=== PATIENT | female | born 1940 | race Two or more races ===

== ENCOUNTER → 2024-01-04 | Outpatient (CLI) | payer OTHER, SELFPAY ==
[2024-01-04 11:44] LABS: Basophils % (Auto) 1 % (0-2.5); Eosinophils # (Auto) 0.1 Thou/mm3 (0.0-0.5); Eosinophils % (Auto) 2 % (0-10); Hematocrit 35.6 % (36.0-46.0); Hemoglobin 11.8 g/dL (12.0-16.0); Immature Granulocytes % (Auto) 1 % (0-0); Immature Granulocytes Auto 0.07 Thou/mm3 (0.00-0.00); Immature Reticulocyte Fraction 23.9 % (3.0-15.9); Lymphocytes # (Auto) 1.4 Thou/mm3 (1.0-4.8); Lymphocytes % (Auto) 23 % (10-50); Mean Corpuscular HGB Conc 33.1 g/dl (31.0-37.0); Mean Corpuscular Volume 91 fL (80-100); Monocytes # (Auto) 0.5 Thou/mm3 (0.0-0.8); Monocytes % (Auto) 8 % (0-12); Neutrophils # (Auto) 3.8 Thou/mm3 (1.8-7.7); Neutrophils % (Auto) 66 % (37-80); Nucleated Red Blood Cell % 0 /100 WBC (0); Platelet Count 296 Thou/mm3 (140-440); RDW Standard Deviation 44.7 fL (36.4-46.3); Red Blood Count 3.93 Miln/mm3 (4.00-5.20); Reticulocyte % (Auto) 2.6 % (0.5-1.5); Reticulocyte Absolute Auto 103.4 Biln/L (25.0-75.0); Reticulocyte Hgb Content 34.2 pg (28.0-35.0); White Blood Count 5.9 Thou/mm3 (3.6-11.0)
[2024-01-04 12:01] LABS: Alanine Aminotransferase 13 U/L (10-49); Albumin, Serum 4.7 gm/dL (3.4-4.8); Albumin/Globulin Ratio 1.7 (1.2-2.2); Alkaline Phosphatase 62 U/L (46-116); Anion Gap 8 (7-16); Aspartate Amino Transferase 13 U/L (0-34); BUN/Creatinine Ratio 23 Ratio (12-20); Bilirubin,Total 0.4 mg/dL (0.3-1.2); Blood Urea Nitrogen 18 mg/dL (9-23); Calcium 9.9 mg/dL (8.3-10.6); Calcium (Corrected) 9.9 mg/dL (8.5-10.1); Carbon Dioxide 25.6 mMol/L (20.0-31.0); Chloride 94 mMol/L (98-107); Creatinine (Component) 0.8 mg/dL (0.6-1.3); Globulin 2.8 gm/dL (2.3-3.5); Glucose 129 mg/dL (74-106); Osmolality,Calculated 260 (275-295); Potassium 4.6 mMol/L (3.4-5.1); Sodium 128 mMol/L (136-145); Total Protein 7.5 gm/dL (5.7-8.2); eGFR > 60 See Note
[2024-01-04 12:05] LABS: Folate 19.96 ng/mL (>5.38); Vitamin B12 > 2000 pg/mL (211-911)
[2024-01-04 12:15] LABS: Ferritin 47 ng/mL (7.3-270.7); Iron 83 mcg/dL (50-170); Percent Iron Saturation 27 % (20-55); Total Iron Binding Capacity 305 mcg/dL (250-425); Unsaturated Iron Binding 222 (225-295)
== END | disposition home or self-care (01) ==
LOC: SCTO 10:41
PROVIDERS: PCP Family Medicine; Referring Provider Nurse Practitioner Family; Visit Provider Nurse Practitioner Family
DX: D50.9 Iron deficiency anemia, unspecified (principal)
CPT/HCPCS: 36415; 80053; 82607; 82728; 82746; 83540; 83550; 85025; 85046

== ENCOUNTER 2024-01-07 11:18 | Outpatient (RCR) | payer OTHER, SELFPAY | END 2024-02-02 23:59 | disposition home or self-care (01) | LOC: SCTC 11:18 | PROVIDERS: PCP Family Medicine; Referring Provider Family Medicine; Visit Provider Nurse Practitioner Family | DX: D50.9 Iron deficiency anemia, unspecified (principal) | CPT/HCPCS: 99212; G0463 ==

== ENCOUNTER → 2024-01-15 | Outpatient (CLI) | payer OTHER, SELFPAY ==
[2024-01-15 12:03] LABS: Basophils % (Auto) 1 % (0-2.5); Eosinophils # (Auto) 0.1 Thou/mm3 (0.0-0.5); Eosinophils % (Auto) 3 % (0-10); Hematocrit 37.8 % (36.0-46.0); Hemoglobin 12.5 g/dL (12.0-16.0); Immature Granulocytes % (Auto) 0 % (0-0); Immature Granulocytes Auto 0.02 Thou/mm3 (0.00-0.00); Lymphocytes # (Auto) 1.5 Thou/mm3 (1.0-4.8); Lymphocytes % (Auto) 29 % (10-50); Mean Corpuscular HGB Conc 33.1 g/dl (31.0-37.0); Mean Corpuscular Hemoglobin 29.6 pg (25.0-35.0); Mean Corpuscular Volume 89 fL (80-100); Monocytes # (Auto) 0.4 Thou/mm3 (0.0-0.8); Monocytes % (Auto) 7 % (0-12); Neutrophils # (Auto) 3.2 Thou/mm3 (1.8-7.7); Neutrophils % (Auto) 61 % (37-80); Nucleated Red Blood Cell % 0 /100 WBC (0); Platelet Count 296 Thou/mm3 (140-440); RDW Standard Deviation 43.5 fL (36.4-46.3); Red Blood Count 4.23 Miln/mm3 (4.00-5.20); White Blood Count 5.3 Thou/mm3 (3.6-11.0)
[2024-01-15 12:17] LABS: Anion Gap 7 (7-16); BUN/Creatinine Ratio 23 Ratio (12-20); Blood Urea Nitrogen 16 mg/dL (9-23); Carbon Dioxide 27.6 mMol/L (20.0-31.0); Chloride 95 mMol/L (98-107); Creatinine (Component) 0.7 mg/dL (0.6-1.3); Glucose 111 mg/dL (74-106); Osmolality,Calculated 263 (275-295); Potassium 4.2 mMol/L (3.4-5.1); Sodium 130 mMol/L (136-145); eGFR > 60 See Note
== END | disposition home or self-care (01) ==
PROVIDERS: PCP Family Medicine; Referring Provider Family Medicine; Visit Provider Family Medicine
DX: K62.5 Hemorrhage of anus and rectum (principal)
CPT/HCPCS: 36415; 80048; 85025

== ENCOUNTER → 2024-02-19 | Outpatient (CLI) | payer OTHER, MEDICAID, SELFPAY ==
[2024-02-19 11:36] LABS: Anion Gap 9 (7-16); BUN/Creatinine Ratio 21 Ratio (12-20); Blood Urea Nitrogen 17 mg/dL (9-23); Calcium 10.1 mg/dL (8.3-10.6); Carbon Dioxide 27.7 mMol/L (20.0-31.0); Chloride 94 mMol/L (98-107); Creatinine (Component) 0.8 mg/dL (0.6-1.3); Glucose 145 mg/dL (74-106); Osmolality,Calculated 267 (275-295); Potassium 4.5 mMol/L (3.4-5.1); Sodium 131 mMol/L (136-145); eGFR > 60 See Note
[2024-02-19 13:21] LABS: Basophils % (Auto) 1 % (0-2.5); Eosinophils # (Auto) 0.2 Thou/mm3 (0.0-0.5); Eosinophils % (Auto) 3 % (0-10); Hematocrit 38.8 % (36.0-46.0); Hemoglobin 12.8 g/dL (12.0-16.0); Immature Granulocytes % (Auto) 0 % (0-0); Immature Granulocytes Auto 0.02 Thou/mm3 (0.00-0.00); Lymphocytes # (Auto) 1.6 Thou/mm3 (1.0-4.8); Lymphocytes % (Auto) 24 % (10-50); Mean Corpuscular Hemoglobin 29.4 pg (25.0-35.0); Mean Corpuscular Volume 89 fL (80-100); Monocytes # (Auto) 0.5 Thou/mm3 (0.0-0.8); Monocytes % (Auto) 7 % (0-12); Neutrophils # (Auto) 4.3 Thou/mm3 (1.8-7.7); Neutrophils % (Auto) 65 % (37-80); Nucleated Red Blood Cell % 0 /100 WBC (0); Platelet Count 301 Thou/mm3 (140-440); RDW Standard Deviation 44.1 fL (36.4-46.3); Red Blood Count 4.36 Miln/mm3 (4.00-5.20); White Blood Count 6.5 Thou/mm3 (3.6-11.0)
== END | disposition home or self-care (01) ==
PROVIDERS: PCP Family Medicine; Referring Provider Family Medicine; Visit Provider Family Medicine
DX: E87.1 Hypo-osmolality and hyponatremia (principal); D64.9 Anemia, unspecified
CPT/HCPCS: 36415; 80048; 85025

== ENCOUNTER → 2024-03-11 | Outpatient (CLI) | payer MEDICARE, MEDICAID, SELFPAY ==
[2024-03-11 11:30] LABS: Basophils % (Auto) 1 % (0-2.5); Eosinophils # (Auto) 0.1 Thou/mm3 (0.0-0.5); Eosinophils % (Auto) 2 % (0-10); Hematocrit 39.4 % (36.0-46.0); Hemoglobin 13.1 g/dL (12.0-16.0); Immature Granulocytes % (Auto) 0 % (0-0); Immature Granulocytes Auto 0.01 Thou/mm3 (0.00-0.00); Immature Reticulocyte Fraction 12.6 % (3.0-15.9); Lymphocytes # (Auto) 1.5 Thou/mm3 (1.0-4.8); Lymphocytes % (Auto) 24 % (10-50); Mean Corpuscular HGB Conc 33.2 g/dl (31.0-37.0); Mean Corpuscular Hemoglobin 29.6 pg (25.0-35.0); Mean Corpuscular Volume 89 fL (80-100); Monocytes # (Auto) 0.4 Thou/mm3 (0.0-0.8); Monocytes % (Auto) 6 % (0-12); Neutrophils # (Auto) 4.2 Thou/mm3 (1.8-7.7); Neutrophils % (Auto) 67 % (37-80); Nucleated Red Blood Cell % 0 /100 WBC (0); Platelet Count 307 Thou/mm3 (140-440); RDW Standard Deviation 43.4 fL (36.4-46.3); Red Blood Count 4.43 Miln/mm3 (4.00-5.20); Reticulocyte % (Auto) 2.3 % (0.5-1.5); Reticulocyte Absolute Auto 101.9 Biln/L (25.0-75.0); Reticulocyte Hgb Content 34.5 pg (28.0-35.0); White Blood Count 6.3 Thou/mm3 (3.6-11.0)
[2024-03-11 11:50] LABS: Alanine Aminotransferase 20 U/L (10-49); Albumin, Serum 4.8 gm/dL (3.4-4.8); Albumin/Globulin Ratio 1.5 (1.2-2.2); Alkaline Phosphatase 53 U/L (46-116); Anion Gap 9 (7-16); Aspartate Amino Transferase 20 U/L (0-34); BUN/Creatinine Ratio 19 Ratio (12-20); Bilirubin,Total 0.5 mg/dL (0.3-1.2); Blood Urea Nitrogen 15 mg/dL (9-23); Calcium 10.2 mg/dL (8.3-10.6); Calcium (Corrected) 10.2 mg/dL (8.5-10.1); Carbon Dioxide 26.9 mMol/L (20.0-31.0); Chloride 97 mMol/L (98-107); Creatinine (Component) 0.8 mg/dL (0.6-1.3); Globulin 3.1 gm/dL (2.3-3.5); Glucose 122 mg/dL (74-106); Osmolality,Calculated 268 (275-295); Potassium 4.3 mMol/L (3.4-5.1); Sodium 133 mMol/L (136-145); Total Protein 7.9 gm/dL (5.7-8.2); eGFR > 60 See Note
[2024-03-11 17:50] LABS: Folate 19.16 ng/mL (>5.38); Vitamin B12 1731 pg/mL (211-911)
[2024-03-12 01:36] LABS: Ferritin 81 ng/mL (7.3-270.7); Iron 82 mcg/dL (50-170); Percent Iron Saturation 27 % (20-55); Total Iron Binding Capacity 302 mcg/dL (250-425); Unsaturated Iron Binding 220 (225-295)
== END | disposition home or self-care (01) ==
PROVIDERS: PCP Family Medicine; Referring Provider Nurse Practitioner Family; Visit Provider Nurse Practitioner Family
DX: D50.9 Iron deficiency anemia, unspecified (principal)
CPT/HCPCS: 36415; 80053; 82607; 82728; 82746; 83540; 83550; 85025; 85046

== ENCOUNTER 2024-03-12 11:29 | Outpatient (RCR) | payer MEDICARE, MEDICAID, SELFPAY ==
--- NOTE | 2024-03-13 00:53 | CTCFLWUP_ITS ---
Patient: PATRIA TAMAYO : 1940 Page 2 of 3 FOLLOW UP NOTE DATE OF SERVICE: 03/12/2024 NAME: PATRIA TAMAYO ACCOUNT: [id number] : 1940 AGE: 83 INTERVAL HISTORY: Patient is known iron deficiency history. Patient is saying that she is feeling very fatigued and ti red and her labs will likely indicate that she needed her iron infusion. Patient says that she likel y have autoimmune problem which has been causing her to lose iron. Patient denies any GI bleeding an d says that extensive testing on her with the colonoscopy and EGD never revealed any bleeding source. Denies any bleeding through the vagina or through the upper GI tract. ONCOLOGY HISTORY: DIAGNOSIS: Iron deficiency anemia, unspecified [ICD10] D50.9 TREATMENT HISTORY: Care?Plan Start?Date Cycle Day Intent VENOfer?200mg?IV?wkly 07/08/2020 1 70 Palliative VENOfer?200mg?IV?wkly 02/22/2021 1 70 Palliative VENOfer?200mg?IV?wkly?for?5?weeks 12/20/2021 1 70 Palliative VENOfer?200mg?IV?wkly?for?10?weeks 10/11/2022 1 70 Palliative HISTORY OF PRESENT ILLNESS: OTHER MEDICAL HISTORY/CONDITIONS: FAMILY HISTORY: ?Clone Family Hx? 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 amLODIPine - 2.5 mg 1 tab Daily 2. clonazePAM - 0.5 mg 1 tab As needed 3. ferrous sulfate - 325 mg (65 mg iron) 1 tab one tab po twice a day 4. gabapentin - 100 mg 1 tab As directed 5. Na - 1 Twice a Day 6. pantoprazole - 40 mg 1 tab Twice a Day 7. Tylenol Arthritis - 650 mg 1 tab Three times a day?Palabra Meds? Medications Last Reconciled by Maritza Candelaria MA on 03/12/2024 ALLERGIES: Penicillins REVIEW OF SYSTEMS: A complete 14-point review of systems was performed and is negative except as noted in interval histo ry. PHYSICAL EXAMINATION: VITAL SIGNS: Temperature?98.3, B/P?156/82, Oxygen?Saturation?99% Weight?141?lbs PAIN: 6 - Severe pain ECOG Performance Status: 1 - Symptomatic; ambulatory; restricted in strenuous activity GENERAL APPEARANCE: Appears well, in no apparent distress, appropriately interactive. HEENT: Normocephalic, no temporal wasting, normal conjunctiva, no scleral icterus, normal hearing, li ps without lesions, neck normal range of motion. CARDIOVASCULAR: Not assessed. PULMONARY: Normal respiratory effort, no respiratory distress or use of accessory muscles, speaking i n full sentences, no tachypnea. EXTREMITIES: No pedal edema or cyanosis. SKIN: Normal skin appearance. NEUROLOGIC: Alert and oriented x4. PSHYCHIATRIC: Appropriate affect, mood normal, behavior normal, intact thought and speech. LABORATORY DATA: I have personally reviewed and interpreted each of the patient?s relevant lab tests, abnormal finding s are below: Date 03/11/24 ??WHITE?BLOOD?COUNT?(Thou/mm3) 6.3 ??RED?BLOOD?COUNT?(Miln/mm3) 4.43 ??HEMOGLOBIN?(gm/dl) 13.1 ??HEMATOCRIT?(%) 39.4 ??PLATELET?COUNT?(Thou/mm3) 307 ??NEUTROPHILS?%,?AUTO?(%) 67 ??LYMPH?%,?AUTO?(%) 24 ??NEUTROPHILS,?AUTO?(Thou/mm3) 4.2 ASSESSMENT/PLAN: Iron deficiency Anemia likely from iron deficiency I reviewed patient's chart and her labs indicate that she have iron deficiency Ferritin is less than 20 Patient is symptomatic There is no obvious reason for her blood loss or anemia or iron deficiency I will check LDH and haptoglobin ORDERS: Feraheme ordered CBC CMP LDH uric acid iron studies RETURN TO CLINIC: I will see her back in the clinic in 3 months. BILLING AND COMPLIANCE: I reviewed external records from providers outside my specialty as summarized above. I spent a total of 50 minutes on this patient?s care on the day of their visit excluding time spent related to any bi lled procedures. This time includes time spent with the patient as well as time spent documenting in the medical record, reviewing patients records and tests, obtaining history, placing orders, communi cating with other healthcare professionals, counseling the patient, family or caregiver, and/or care coordination for the diagnoses above. Electronically Signed by: Greg Mayo MD T: 12:50 AM CC: PCP: Hira Sosa Referring: Hira Sosa This document was completed utilizing speech recognition software. Grammatical errors, random word in sertions, pronoun errors, and incomplete sentences are an occasional consequence of this system due t o software limitations, ambient noise, and hardware issues. Any formal questions or concerns about th e content, text or information contained within the body of this dictation should be directly address ed to the provider for clarification.
== END 2024-04-04 23:59 | disposition home or self-care (01) ==
LOC: SCTC 11:29
PROVIDERS: PCP Family Medicine; Referring Provider Family Medicine; Visit Provider Internal Medicine Hematology & Oncology
DX: D50.9 Iron deficiency anemia, unspecified (principal)
CPT/HCPCS: Q3014

== ENCOUNTER → 2024-04-22 | Outpatient (CLI) | payer MEDICARE, SELFPAY ==
[2024-04-22 13:55] LABS: Basophils % (Auto) 0 % (0-2.5); Eosinophils # (Auto) 0.1 Thou/mm3 (0.0-0.5); Eosinophils % (Auto) 1 % (0-10); Hematocrit 38.9 % (36.0-46.0); Immature Granulocytes % (Auto) 0 % (0-0); Immature Granulocytes Auto 0.03 Thou/mm3 (0.00-0.00); Lymphocytes # (Auto) 1.6 Thou/mm3 (1.0-4.8); Lymphocytes % (Auto) 24 % (10-50); Mean Corpuscular HGB Conc 33.4 g/dl (31.0-37.0); Mean Corpuscular Hemoglobin 29.7 pg (25.0-35.0); Mean Corpuscular Volume 89 fL (80-100); Monocytes # (Auto) 0.4 Thou/mm3 (0.0-0.8); Monocytes % (Auto) 6 % (0-12); Neutrophils # (Auto) 4.6 Thou/mm3 (1.8-7.7); Neutrophils % (Auto) 68 % (37-80); Nucleated Red Blood Cell % 0 /100 WBC (0); Platelet Count 259 Thou/mm3 (140-440); RDW Standard Deviation 43.9 fL (36.4-46.3); Red Blood Count 4.37 Miln/mm3 (4.00-5.20); White Blood Count 6.7 Thou/mm3 (3.6-11.0)
[2024-04-22 14:09] LABS: Anion Gap 8 (7-16); BUN/Creatinine Ratio 24 Ratio (12-20); Blood Urea Nitrogen 19 mg/dL (9-23); Carbon Dioxide 29.2 mMol/L (20.0-31.0); Chloride 97 mMol/L (98-107); Creatinine (Component) 0.8 mg/dL (0.6-1.3); Glucose 101 mg/dL (74-106); Osmolality,Calculated 270 (275-295); Potassium 4.7 mMol/L (3.4-5.1); Sodium 134 mMol/L (136-145); eGFR > 60 See Note
== END | disposition home or self-care (01) ==
PROVIDERS: PCP Family Medicine; Referring Provider Family Medicine; Visit Provider Family Medicine
DX: E87.1 Hypo-osmolality and hyponatremia (principal); D64.9 Anemia, unspecified
CPT/HCPCS: 36415; 80048; 85025

== ENCOUNTER → 2024-07-03 | Outpatient (CLI) | payer MEDICARE, SELFPAY ==
--- NOTE | 2024-07-03 11:30 | XR_ITS ---
Examination: Screening digital mammography, bilateral Computer aided detection 3-D breast Tomosynthesis, bilateral Date and time of exam: July 03, 2024 1117 hours Compared to mammograms dating to June 25, 2013 Indication: Screening Technique: Nonmagnified MLO, CC views of the breasts to been obtained, reconstructed from 3-D Tomosynthesis images. R2 computer aided detection program utilized for evaluation of suspicious masses and/or abnormal calcifications. 3-D Tomosynthesis images obtained. Findings: The breasts are heterogeneously dense, which may obscure small masses 8 mm focal asymmetry outer lower left breast anterior depth Benign calcifications Impression: BI-RADS Category 0: Incomplete: Need additional imaging evaluation 8 mm focal asymmetry outer lower left breast anterior depth, recommend follow-up spot tomographic views of this asymmetry as well as bilateral breast sonography to complete the workup.
== END | disposition home or self-care (01) ==
LOC: CDIM 11:09
PROVIDERS: Referring Provider Family Medicine; Visit Provider Family Medicine
DX: Z12.31 Encounter for screening mammogram for malignant neoplasm of breast (principal); N64.89 Other specified disorders of breast
CPT/HCPCS: 77063; 77067

== ENCOUNTER → 2024-08-06 | Outpatient (CLI) | payer MEDICARE, SELFPAY ==
--- NOTE | 2024-08-06 08:45 | XR_ITS ---
Examination: Breast ultrasound complete, bilateral Date and time of exam: August 06, 2024 0909 hours INDICATIONS: Mammogram July 03, 2024 8mm focal asymmetry outer lower left breast, patient has sharp breast pain Technique: Real-time grayscale ultrasonographic imaging bilateral breasts, including all 4 quadrants as well as nipple retroareolar and axillary regions. Findings: Sonographic images right breast 10:00 cyst 5 x 5 mm No solid nodules Sonographic images left breast 12:00 cyst 4 x 4 millimeter Retroareolar calcifications, the largest 2 mm IMPRESSION: BI-RADS Category 2: Benign findings
--- NOTE | 2024-08-06 09:45 | XR_ITS ---
Examination: Diagnostic digital mammography, unilateral, left Computer aided detection 3-D breast Tomosynthesis, unilateral Date and time of exam: August 06, 2024 0927 hours INDICATIONS: Mammogram July 03, 2024 8mm focal asymmetry outer lower left breast anterior depth Technique: Nonmagnified MLO, CC views of the left breast have been obtained, reconstructed from 3-D Tomosynthesis images. R2 computer aided detection program utilized for evaluation of suspicious masses and/or abnormal calcifications. 3-D Tomosynthesis images obtained. Findings: The breast is heterogeneously dense, which may obscure small masses Focal asymmetry remains outer left breast on the spot compression CC view probably benign Impression: BI-RADS category 3: Probably benign findings One additional 6 month left mammogram follow-up is needed
== END | disposition home or self-care (01) ==
PROVIDERS: PCP Family Medicine; Referring Provider Family Medicine; Visit Provider Family Medicine
DX: R92.332 Mammographic heterogeneous density, left breast (principal)
CPT/HCPCS: 76641; 77061; 77065; G0279

== ENCOUNTER → 2024-09-15 | Outpatient (CLI) | payer MEDICARE, SELFPAY ==
--- NOTE | 2024-09-15 10:29 | EKG_ITS ---
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
== END | disposition home or self-care (01) ==
LOC: SEKG 09:52
PROVIDERS: PCP Family Medicine; Referring Provider Ophthalmology; Visit Provider Ophthalmology
DX: Z01.818 Encounter for other preprocedural examination (principal)
CPT/HCPCS: 93005

== ENCOUNTER → 2024-10-21 | Outpatient (CLI) | payer MEDICARE, SELFPAY ==
[2024-10-21 14:12] LABS: Basophils # (Auto) 0.0 Thou/mm3 (0.0-0.2); Basophils % (Auto) 0 % (0-2.5); Eosinophils # (Auto) 0.1 Thou/mm3 (0.0-0.5); Eosinophils % (Auto) 2 % (0-10); Hematocrit 41.0 % (36.0-46.0); Hemoglobin 13.4 g/dL (12.0-16.0); Immature Granulocytes Auto 0.02 Thou/mm3 (0.00-0.00); Lymphocytes # (Auto) 1.6 Thou/mm3 (1.0-4.8); Lymphocytes % (Auto) 25 % (10-50); Mean Corpuscular HGB Conc 32.7 g/dl (31.0-37.0); Mean Corpuscular Hemoglobin 29.8 pg (25.0-35.0); Mean Corpuscular Volume 91 fL (80-100); Monocytes # (Auto) 0.5 Thou/mm3 (0.0-0.8); Monocytes % (Auto) 7 % (0-12); Neutrophils # (Auto) 4.3 Thou/mm3 (1.8-7.7); Neutrophils % (Auto) 66 % (37-80); Nucleated Red Blood Cell # 0.00 Thou/mm3 (0.00-0.00); Nucleated Red Blood Cell % 0 /100 WBC (0); Platelet Count 261 Thou/mm3 (140-440); RDW Standard Deviation 44.1 fL (36.4-46.3); Red Blood Count 4.49 Miln/mm3 (4.00-5.20); White Blood Count 6.5 Thou/mm3 (3.6-11.0)
[2024-10-21 14:19] LABS: Alanine Aminotransferase 21 U/L (10-49); Albumin, Serum 4.8 gm/dL (3.4-4.8); Albumin/Globulin Ratio 1.8 (1.2-2.2); Alkaline Phosphatase 52 U/L (46-116); Anion Gap 10 (7-16); Aspartate Amino Transferase 21 U/L (0-34); BUN/Creatinine Ratio 19 Ratio (12-20); Bilirubin,Total 0.5 mg/dL (0.3-1.2); Blood Urea Nitrogen 15 mg/dL (9-23); Calcium 10.1 mg/dL (8.3-10.6); Calcium (Corrected) 10.1 mg/dL (8.5-10.1); Carbon Dioxide 27.9 mMol/L (20.0-31.0); Chloride 98 mMol/L (98-107); Creatinine (Component) 0.8 mg/dL (0.6-1.3); Globulin 2.7 gm/dL (2.3-3.5); Glucose 107 mg/dL (74-106); Osmolality,Calculated 272 (275-295); Potassium 4.6 mMol/L (3.4-5.1); Sodium 136 mMol/L (136-145); Total Protein 7.5 gm/dL (5.7-8.2); eGFR > 60 See Note
== END | disposition home or self-care (01) ==
LOC: COPL 12:39
PROVIDERS: PCP Family Medicine; Referring Provider Family Medicine; Visit Provider Family Medicine
DX: I10 Essential (primary) hypertension (principal)
CPT/HCPCS: 36415; 80053; 85025

== ENCOUNTER → 2025-01-14 | Outpatient (CLI) | payer MEDICARE, MEDICAID, SELFPAY ==
[2025-01-14 13:00] LABS: Cardiac Risk Estimate 6.3 RATIO (3.7-5.6); Cholesterol 220 mg/dL (132-200); HDL Cholesterol 35 mg/dL (40-60); LDL Cholesterol,Calculated 111 mg/dL (0-130); Triglycerides 368 mg/dL (30-150)
[2025-01-14 13:15] LABS: Thyroid Stimulating Hormone 2.50 uIU/mL (0.55-4.78)
== END | disposition home or self-care (01) ==
LOC: COPL 10:11
PROVIDERS: PCP Family Medicine; Referring Provider Family Medicine; Visit Provider Family Medicine
DX: E78.2 Mixed hyperlipidemia (principal)
CPT/HCPCS: 36415; 80061; 84443

== ENCOUNTER → 2025-02-09 | Outpatient (CLI) | payer MEDICARE, MEDICAID, SELFPAY ==
--- NOTE | 2025-02-09 11:15 | XR_ITS ---
Examination: Diagnostic digital mammography, unilateral, left Computer aided detection 3-D breast Tomosynthesis, unilateral Date and time of exam: 02/09/2025, 11:13 a.m. Comparisons: June 2023 through August 2024 Indications: Follow-up evaluation of probably benign focal asymmetry Technique: Nonmagnified MLO, CC views of the left breast have been obtained, reconstructed from 3-D Tomosynthesis images. R2 computer aided detection program utilized for evaluation of suspicious masses and/or abnormal calcifications. 3-D Tomosynthesis images obtained. Technologist: Findings: The breasts are heterogeneously dense, which may obscure small masses. Stable benign-appearing focal asymmetry outer breast no evidence of abnormal masses or suspicious calcifications. Impression: BI-RADS category 1: Negative findings (within normal) Recommend 1 year follow-up mammogram
== END | disposition home or self-care (01) ==
LOC: CDIM 10:53
PROVIDERS: Referring Provider Family Medicine; Visit Provider Family Medicine
DX: R92.312 Mammographic fatty tissue density, left breast (principal)
CPT/HCPCS: 77061; 77065; G0279